=== PATIENT | female | born 1985 | race African-American/Black ===

== ENCOUNTER 2018-05-14 01:44 | Emergency (ER) | payer BC, SELFPAY ==
[2018-05-14] MEDS ORDERED: KETOROLAC 30 MG/ML INJ ONE (02:14)
[2018-05-14] MEDS ORDERED: FENTANYL CITR 100 MCG/2 ML ONE (02:58)
[2018-05-14 03:16] LABS: Urine Specific Gravity 1.025 (1.005-1.030)
[2018-05-14 03:16] LABS: Urine Bacteria <20 /HPF (<20); Urine Culture Reflex Order NOT NEEDED; Urine RBC <5 /HPF (NONE SEEN)
[2018-05-14 03:17] LABS: Urine Blood 1+ (NEG); Urine Glucose NEGATIVE (NEG); Urine Protein NEGATIVE (NEG); Urine Specific Gravity 1.025 (1.005-1.030)
[2018-05-14] MEDS ORDERED: AMOX/K CLAV 875 MG TAB ONE (03:40)
[2018-05-14] MEDS ORDERED: NA CHLORIDE 0.9% 1,000 ML ONE (03:46)
--- NOTE | 2018-05-14 03:47 | ER ---
Nurse's Notes [facility] Name: Christa Mc Age: 32 yrs Sex: Female : 1985 Arrival Date: 05/14/2018 Time: 01:46 Bed 26 Private MD: Diagnosis: Essential (primary) hypertension;Urinary tract infection, site not specified;Low back pain;Calculus of kidney with calculus of ureter Presentation: 05/14 01:55 Presenting complaint: Patient states: right flank pain started yesterday pain score of rr5 7/10 facial grimace noted. pain on urination and while bending. 01:55 Transition of care: patient was not received from another setting of care. Onset of rr5 symptoms was May 13, 2018. Risk Assessment: Do you want to hurt yourself or someone else? Patient reports no desire to harm self or others. Initial Sepsis Screen: Does the patient meet any 2 criteria? No. Patient's initial sepsis screen is negative. Does the patient have a suspected source of infection? No. Patient's initial sepsis screen is negative. Care prior to arrival: None. 01:55 Method Of Arrival: Ambulatory rr5 01:55 Acuity: SARITA 3 rr5 Triage Assessment: 02:00 General: Appears uncomfortable, ill, Behavior is calm, cooperative, appropriate for rr5 age, crying. Pain: Complains of pain in right flank Pain does not radiate. Pain currently is 7 out of 10 on a pain scale. Quality of pain is described as aching, Pain began suddenly, Is intermittent. 02:00 EENT: No signs and/or symptoms were reported regarding the EENT system. Neuro: Level of rr5 Consciousness is awake, alert, obeys commands, Oriented to person, place, time, situation. Cardiovascular: Capillary refill < 3 seconds Patient's skin is warm and dry. Respiratory: Airway is patent Respiratory effort is even, Respiratory pattern is tachypnea. GI: Abdomen is round. : Reports pain in right flank(s), since yesterday with urination, Pain is 7 out of 10 on a pain scale. Derm: No signs and/or symptoms reported regarding the dermatologic system. Musculoskeletal: No signs and/or symptoms reported regarding the musculoskeletal system. 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 - Social history:: Smoking status: Patient uses tobacco products, smokes one-half pack cigarettes per day, Patient/guardian denies using alcohol, street drugs. - Ebola Screening: : Patient negative for fever greater than or equal to 101.5 degrees Fahrenheit, and additional compatible Ebola Virus Disease symptoms Patient denies exposure to infectious person Patient denies travel to an Ebola-affected area in the 21 days before illness onset. Screenin:19 Abuse screen: Denies threats or abuse. Denies injuries from another. Nutritional rr5 screening: No deficits noted. Tuberculosis screening: No symptoms or risk factors identified. Fall Risk None identified. Assessment: 02:00 General: see triage assessment. rr5 02:50 Reassessment: still complaining of severe pain.symptoms did not improved. stat rr5 medication given. 03:50 Reassessment: complaining of severe pain, crying facial grimace noted. pain medication rr5 given. Pain: Complains of pain in right flank area Pain does not radiate. Pain currently is 7 out of 10 on a pain scale. Quality of pain is described as aching, Pain began suddenly. 04:10 Reassessment: dr. church informed patient still having severe pain, with order made and rr5 carried out. Patient states symptoms have not improved. 04:58 Reassessment: Patient appears in no apparent distress at this time. discharge rr5 instruction and prescription given and explained with no complaints made. vitally stable. Patient states symptoms have improved. Vital Signs: 01:57 BP 169 / 104; Pulse 117; Resp 22; Temp 97.8; Pulse Ox 98% ; Weight 88.9 kg; Height 5 rr5 ft. 6 in. (167.64 cm); Pain 7/10; 02:34 BP 122 / 102; Pulse 98; Resp 20; Pulse Ox 100% ; rr5 03:00 BP 145 / 101; Pulse 90; Resp 21; Pulse Ox 99% ; rr5 03:50 BP 141 / 85; Pulse 101; Resp 20; Pulse Ox 99% ; rr5 04:10 BP 142 / 100; Pulse 74; Resp 19; Pulse Ox 99% ; rr5 05:00 BP 125 / 71; Pulse 95; Resp 18; Pulse Ox 99% on R/A; rr5 01:57 Body Mass Index 31.63 (88.90 kg, 167.64 cm) rr5 ED Course: 01:46 Patient arrived in ED. es 01:48 Pankaj Salcido RN is Primary Nurse. jd3 01:49 Shirin Schofield FNP-C is PHCP. snw 01:49 Amari Church MD is Attending Physician. snw 01:56 Triage completed. rr5 02:00 Patient has correct armband on for positive identification. Bed in low position. Call rr5 light in reach. Side rails up X 1. Pulse ox on. NIBP on. 02:00 Head of bed elevated. rr5 02:00 Arm band placed on left wrist. rr5 02:09 Radiology exam delayed due to test not completed at this time. mw3 02:[address] mw3 02:[address] rr5 02:42 CT Stone Protocol In Process Unspecified. EDMS 02:43 CT completed. Patient tolerated procedure well. Patient moved back from CT. mw3 03:50 Inserted saline lock: 20 gauge in left hand, using aseptic technique. Blood collected. rr5 05:00 No provider procedures requiring assistance completed. IV discontinued, intact, rr5 bleeding controlled, No redness/swelling at site. Pressure dressing applied. Administered Medications: 02:09 Drug: TORadol 60 mg Route: IM; Site: right gluteus; rr5 02:50 Follow up: Response: Pain is unchanged, physician notified rr5 02:51 Drug: fentaNYL (PF) 50 mcg Route: IM; Site: left gluteus; rr5 04:14 Follow up: Response: Pain is unchanged, physician notified rr5 03:50 Drug: NS 0.9% 1000 ml Route: IV; Rate: 1 bolus; Site: left hand; rr5 04:58 Follow up: Response: No adverse reaction; IV Status: Completed infusion rr5 03:50 Drug: fentaNYL (PF) 25 mcg Route: IVP; Site: left hand; rr5 04:14 Follow up: Response: Pain is unchanged, physician notified rr5 03:53 Drug: Augmentin 875 mg Route: PO; rr5 04:58 Follow up: Response: No adverse reaction rr5 04:14 Drug: Demerol 25 mg Route: IVP; Site: left hand; rr5 04:58 Follow up: Response: No adverse reaction; Pain is decreased rr5 Outcome: 03:46 Discharge ordered by MD. santana 05:00 Discharged to home ambulatory. rr5 05:00 Condition: stable 05:00 Discharge instructions given to patient, Instructed on discharge instructions, follow up and referral plans. medication usage, Demonstrated understanding of instructions, follow-up care, medications, Prescriptions given X 3. 05:02 Patient left the ED. rr5 Signatures: Dispatcher [employer] EDShirin Campa, WHITTLING ROOM OPERATOR-C WHITTLING ROOM OPERATOR-Csnw Farheen Alarcon Jonathon, RN RN jd3 Lizzie Broderick 3 Damon Chan RN RN rr5
--- NOTE | 2018-05-14 03:48 | EDPHYS ---
Physician Documentation [facility] Name: Christa Mc Age: 32 yrs Sex: Female : 1985 Arrival Date: 05/14/2018 Time: 01:46 Bed 26 Private MD: ED Physician Amari Church HPI: 05/14 02:13 This 32 yrs old Black Female presents to ER via Ambulatory with complaints of Low Back snw Pain. 02:13 The patient presents with pain that is acute, with no known mechanism of injury. The snw symptoms are located in the right mid back. The pain does not radiate. The problem was sustained from unknown cause. Onset: The symptoms/episode began/occurred suddenly, yesterday. Associated signs and symptoms: Pertinent positives: dysuria, Pertinent negatives: fever. Severity of symptoms: At their worst the symptoms were moderate, severe. The patient has not experienced similar symptoms in the past. It is unknown whether or not the patient has recently seen a physician. 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 - Social history:: Smoking status: Patient uses tobacco products, smokes one-half pack cigarettes per day, Patient/guardian denies using alcohol, street drugs. - Ebola Screening: : Patient negative for fever greater than or equal to 101.5 degrees Fahrenheit, and additional compatible Ebola Virus Disease symptoms Patient denies exposure to infectious person Patient denies travel to an Ebola-affected area in the 21 days before illness onset. ROS: 02:13 Constitutional: Negative for fever, chills, and weight loss, Eyes: Negative for injury, snw pain, redness, and discharge, ENT: Negative for injury, pain, and discharge, Neck: Negative for injury, pain, and swelling, Cardiovascular: Negative for chest pain, palpitations, and edema, Respiratory: Negative for shortness of breath, cough, wheezing, and pleuritic chest pain, Abdomen/GI: Negative for abdominal pain, nausea, vomiting, diarrhea, and constipation, MS/Extremity: Negative for injury and deformity, Skin: Negative for injury, rash, and discoloration, Neuro: Negative for headache, weakness, numbness, tingling, and seizure. 02:13 Back: Positive for pain with movement, flank pain, on the right. 02:13 : Positive for urinary symptoms, urinary frequency, small amounts, burning with urination. Exam: 02:12 Constitutional: This is a well developed, well nourished patient who is awake, alert, snw and in no acute distress. Head/Face: Normocephalic, atraumatic. Eyes: Pupils equal round and reactive to light, extra-ocular motions intact. Lids and lashes normal. Conjunctiva and sclera are non-icteric and not injected. Cornea within normal limits. Periorbital areas with no swelling, redness, or edema. ENT: Nares patent. No nasal discharge, no septal abnormalities noted. Tympanic membranes are normal and external auditory canals are clear. Oropharynx with no redness, swelling, or masses, exudates, or evidence of obstruction, uvula midline. Mucous membranes moist. Neck: Trachea midline, no thyromegaly or masses palpated, and no cervical lymphadenopathy. Supple, full range of motion without nuchal rigidity, or vertebral point tenderness. No Meningismus. Chest/axilla: Normal chest wall appearance and motion. Nontender with no deformity. No lesions are appreciated. Cardiovascular: Regular rate and rhythm with a normal S1 and S2. No gallops, murmurs, or rubs. Normal PMI, no JVD. No pulse deficits. Respiratory: Lungs have equal breath sounds bilaterally, clear to auscultation and percussion. No rales, rhonchi or wheezes noted. No increased work of breathing, no retractions or nasal flaring. Abdomen/GI: Soft, non-tender, with normal bowel sounds. No distension or tympany. No guarding or rebound. No evidence of tenderness throughout. Skin: Warm, dry with normal turgor. Normal color with no rashes, no lesions, and no evidence of cellulitis. MS/ Extremity: Pulses equal, no cyanosis. Neurovascular intact. Full, normal range of motion. Neuro: Awake and alert, GCS 15, oriented to person, place, time, and situation. Cranial nerves II-XII grossly intact. Motor strength 5/5 in all extremities. Sensory grossly intact. Cerebellar exam normal. Normal gait. Psych: Awake, alert, with orientation to person, place and time. Behavior, mood, and affect are within normal limits. 02:12 Back: ROM is normal, CVA tenderness, that is moderate, is noted on the right. Vital Signs: 01:57 BP 169 / 104; Pulse 117; Resp 22; Temp 97.8; Pulse Ox 98% ; Weight 88.9 kg; Height 5 rr5 ft. 6 in. (167.64 cm); Pain 7/10; 02:34 BP 122 / 102; Pulse 98; Resp 20; Pulse Ox 100% ; rr5 03:00 BP 145 / 101; Pulse 90; Resp 21; Pulse Ox 99% ; rr5 03:50 BP 141 / 85; Pulse 101; Resp 20; Pulse Ox 99% ; rr5 04:10 BP 142 / 100; Pulse 74; Resp 19; Pulse Ox 99% ; rr5 05:00 BP 125 / 71; Pulse 95; Resp 18; Pulse Ox 99% on R/A; rr5 01:57 Body Mass Index 31.63 (88.90 kg, 167.64 cm) rr5 MDM: 01:49 Patient medically screened. snw 03:07 Data reviewed: vital signs, nurses notes. Data interpreted: Pulse oximetry: on room air snw is 100 %. Interpretation: normal. Counseling: I had a detailed discussion with the patient and/or guardian regarding: the historical points, exam findings, and any diagnostic results supporting the discharge/admit diagnosis, the presence of at least one elevated blood pressure reading (>120/80) during this emergency department visit, lab results, radiology results, the need for outpatient follow up, to return to the emergency department if symptoms worsen or persist or if there are any questions or concerns that arise at home. Special discussion: I have referred the patient to see his PCP for further evaluation of high blood pressure. Based on the history and exam findings, there is no indication for further emergent testing or inpatient evaluation. I discussed with the patient/guardian the need to see the primary care provider for further evaluation of the symptoms. 05/14 01:50 Order name: Urine Culture snw 05/14 01:50 Order name: Urine Microscopic Only; Complete Time: 03:30 snw 05/14 02:03 Order name: Urine Dipstick--Ancillary (enter results); Complete Time: 03:30 mt 05/14 02:06 Order name: Urine --Ancillary (enter results); Complete Time: 03:30 ut 05/14 03:35 Order name: CBC with Diff [facility] 05/14 03:35 Order name: Chem 7 [facility] 05/14 01:50 Order name: Urine Test (obtain specimen); Complete Time: 02:20 sn 05/14 02:06 Order name: CT Stone Protocol [facility] 05/14 01:50 Order name: Urine Dipstick-Ancillary (obtain specimen); Complete Time: 02:03 snw Administered Medications: 02:09 Drug: TORadol 60 mg Route: IM; Site: right gluteus; rr5 02:50 Follow up: Response: Pain is unchanged, physician notified rr5 02:51 Drug: fentaNYL (PF) 50 mcg Route: IM; Site: left gluteus; rr5 04:14 Follow up: Response: Pain is unchanged, physician notified rr5 03:50 Drug: NS 0.9% 1000 ml Route: IV; Rate: 1 bolus; Site: left hand; rr5 04:58 Follow up: Response: No adverse reaction; IV Status: Completed infusion rr5 03:50 Drug: fentaNYL (PF) 25 mcg Route: IVP; Site: left hand; rr5 04:14 Follow up: Response: Pain is unchanged, physician notified rr5 03:53 Drug: Augmentin 875 mg Route: PO; rr5 04:58 Follow up: Response: No adverse reaction rr5 04:14 Drug: Demerol 25 mg Route: IVP; Site: left hand; rr5 04:58 Follow up: Response: No adverse reaction; Pain is decreased rr5 Disposition: 05/14/18 03:46 Discharged to Home. Impression: Essential (primary) hypertension, Urinary tract infection, site not specified, Low back pain, Calculus of kidney with calculus of ureter. - Condition is Stable. - Discharge Instructions: Back Pain, Adult, Hypertension, Kidney Stones, Cryotherapy, Dietary Guidelines to Help Prevent Kidney Stones, DASH Eating Plan, Rehydration, Adult, Heat Therapy. - Prescriptions for Augmentin 875- 125 mg Oral Tablet - take 1 tablet by ORAL route every 12 hours for 10 days; 20 tablet. Diclofenac Sodium 75 mg Oral Tablet Sustained Release - take 1 tablet by ORAL route 2 times per day; 30 tablet. orphenadrine citrate 100 mg Oral Tablet Sustained Release - take 1 tablet by ORAL route 2 times per day As needed; 20 tablet. - Work release form, Medication Reconciliation Form, Thank You Letter, Antibiotic Education, Prescription Opioid Use form. - Follow up: Private Physician; When: 2 - 3 days; Reason: Recheck today's complaints, Continuance of care, Re-evaluation by your physician. Follow up: Emergency Department; When: As needed; Reason: Worsening of condition. Addendum: 05/16/2018 07:02 Co-signature as Attending Physician, Amari Church MD. r n Signatures: Dispatcher [employer] EDShirin Campa, JOHN-C HOUSE MANAGER-Csnw Amari Church MD MD rn Roque, Raymond, RN RN rr5 Corrections: (The following items were deleted from the chart) 05/14 05:02 03:46 05/14/2018 03:46 Discharged to Home. Impression: Essential (primary) rr5 hypertension; Urinary tract infection, site not specified; Low back pain; Calculus of kidney with calculus of ureter. Condition is Stable. Discharge Instructions: Back Pain, Adult, Hypertension, Cryotherapy, Dietary Guidelines to Help Prevent Kidney Stones, DASH Eating Plan, Rehydration, Adult, Heat Therapy. Prescriptions for Augmentin 875-125 mg Oral Tablet - take 1 tablet by ORAL route every 12 hours for 10 days; 20 tablet, Diclofenac Sodium 75 mg Oral Tablet Sustained Release - take 1 tablet by ORAL route 2 times per day; 30 tablet, orphenadrine citrate 100 mg Oral Tablet Sustained Release - take 1 tablet by ORAL route 2 times per day As needed; 20 tablet. and Forms are Work release form, Medication Reconciliation Form, Thank You Letter, Antibiotic Education, Prescription Opioid Use. Follow up: Private Physician; When: 2 - 3 days; Reason: Recheck today's complaints, Continuance of care, Re-evaluation by your physician. Follow up: Emergency Department; When: As needed; Reason: Worsening of condition. snw
[2018-05-14] MEDS ORDERED: MEPERIDINE HCL 25 MG/0.5 ML ONE (04:14)
[2018-05-14 04:24] LABS: Absolute Lymphocytes (CBC) 2.3 K/uL (0.7-4.9); Absolute Monocytes 0.7 K/uL (0.1-1.3); Absolute Neutrophil 4.7 K/uL (1.8-8.0); Basophils % 0.6 % (0-1.3); Eosinophils % 3.7 % (0-4.4); Hematocrit 36.6 % (36.0-45.0); MCH 28.5 pg (27.0-35.0); MCV 85.5 fL (80-100); MPV 7.7 fL (7.6-11.3); Monocytes % 8.7 % (3.3-12.3); RBC Red Blood Cell Count 4.28 M/uL (3.86-4.86)
[2018-05-14 04:39] LABS: BUN Blood Urea Nitrogen 12 mg/dL (7-18); Bicarbonate 26 mmol/L (21-32); Glucose Level 100 mg/dL (74-106); Potassium 3.3 mmol/L (3.5-5.1); Sodium Level 141 mmol/L (136-145)
--- NOTE | 2018-05-14 08:38 | RAD REPORT ---
EXAM DESCRIPTION: CT - Stone Protocol - 05/14/2018 4:02 am CLINICAL HISTORY: Abdominal pain, flank pain, dysuria A preliminary report was provided at the time of the study and reviewed prior to final report. COMPARISON: None. TECHNIQUE: Axial 3 mm thick images were obtained without oral or IV contrast. The [id number] span s the entirety of the system including uppermost abdomen and lung bases. All CT scans are performed using dose optimization technique as appropriate and may include automated exposure control or mA/KV adjustment according to patient size. FINDINGS: No hydronephrosis is present and no obstructing ureteral calculi. No suspicious renal mass es. Isodense masses and pyelonephritis are not excluded on a stone protocol CT scan. Partially filled urinary bladder shows no suspicious finding. No significant adrenal finding. Uterus and ovaries show no suspicious findings. Left-sided pelvic floor phleboliths are present. Imaged portions of the liver, spleen and pancreas show no suspicious findings on non-contrast imaging . No gallbladder or biliary tree abnormality identified. No suspicious bowel findings. No appendicitis or other acute GI process. No hernia, mass or bulky lymphadenopathy noted. No free air, free fluid or inflammatory stranding. No significant bony abnormality. IMPRESSION: Noncontrast CT abdomen and pelvis imaging shows no significant or suspicious finding. Isodense masses and pyelonephritis are not excluded on stone protocol technique.
== END 2018-05-14 05:02 | disposition home or self-care (01) ==
LOC: ER 01:44
DX: N39.0 Urinary tract infection, site not specified (principal); N20.2 Calculus of kidney with calculus of ureter; I10 Essential (primary) hypertension; F17.210 Nicotine dependence, cigarettes, uncomplicated; Z88.5 Allergy status to narcotic agent
CPT/HCPCS: 36415; 74176; 76377; 80048; 81003; 81015; 81025; 85025; 87086; 87088; 96361; 96372; 96374; 96375; 99284; J2175; J3010; J7030